=== PATIENT | female | born 1975 | race Caucasian/White ===

== ENCOUNTER → 2017-05-26 | Outpatient (CLI) | payer OTHER | LOC: FIMAGING 08:44 | PROVIDERS: ATTEND Internal Medicine Pulmonary Disease | DX: K21.9 Gastro-esophageal reflux disease without esophagitis (principal); R06.02 Shortness of breath; J31.0 Chronic rhinitis; Z88.9 Allergy status to unspecified drugs, medicaments and biological substances ==

== ENCOUNTER 2017-07-31 09:08 | Emergency (ER) | payer OTHER ==
[2017-07-31 09:36] VITALS: RESP 16
--- NOTE | 2017-07-31 10:00 | EDPHY ---
H & P Stated Complaint: rt nare bleeding since 729 this am,hilario Time Seen by Provider: 07/31/17 09:21 - Personal History LMP (Females 10-55): 15-21 Days Ago - Medical/Surgical History Hx Asthma: Yes Hx Chronic Respiratory Disease: No Hx Diabetes: No Hx Cardiac Disease: No Hx Renal Disease: No Hx Cirrhosis: No Hx Alcoholism: No Hx HIV/AIDS: No Hx Splenectomy or Spleen Trauma: No Other PMH: Hypothyroid,allergies-severe,MTHFR. ortho surgeries. Csection - Social History Smoking Status: Never smoked Constitutional: Initial Vital Signs Heart Rate 69 07/31/17 09:22 Respiratory Rate 16 07/31/17 09:22 Blood Pressure 144/103 H 07/31/17 09:22 O2 Sat (%) 97 07/31/17 09:22 O2 Delivery Mode Room Air Allergies/Adverse Reactions: adhesive Allergy (Intermediate, Verified 07/31/17 09:19) Rash codeine [Codeine] Allergy (Intermediate, Verified 07/31/17 09:19) hydrocodone bitartrate [From Vicodin] Allergy (Intermediate, Verified 07/31/17 09:19) oxycodone HCl [From Percocet] Allergy (Intermediate, Verified 07/31/17 09:19) Penicillins Allergy (Verified 07/31/17 09:20) Home Medications: Medication Instructions Recorded [facility] Rx Tablet 04/23/16 Medical Decision Making ED Course/Re-evaluation: CHIEF COMPLAINT: Nosebleed HISTORY OF PRESENT ILLNESS: 42-year-old female with a long history of nose bleeds always out of the right nares. She has had 1 or to emergency department cauterization procedures in addition to want her to ENT physician cautery procedures. She had a bit of an upper respiratory infection over the last week. She blew her nose this morning and developed a nosebleed out her right naris. She has a nasal clamp and she was told to use Afrin which she did both of those things. She currently does not have active bleeding with the clamp on. She does not have any bleeding going backwards down her throat. She does not have any bleeding coming out the front. She denies any recent nasal injuries. The weather has become severely cold recently in the heat has been on significantly in her house also. REVIEW OF SYSTEMS: A 10 point review of systems was performed and is negative with the exception of the elements mentioned in the history of present illness. PHYSICAL EXAM: HR, BP, O2 Sat, RR. Temp noted General Appearance: Alert, well hydrated, appropriate, and non-toxic appearing. Head: Atraumatic without scalp tenderness or obvious injury Eyes: Pupils equal, round, reactive to light and accommodation, EOMI, no trauma , no injection. Nose: Atraumatic, no rhinorrhea, clear. Throat: There is no erythema or exudates, no lesions, normal tonsils, mucus membranes moist. Neck: Supple, 2+ carotid upstroke, nontender, no lymphadenopathy. Respiratory: No retractions, no distress, no wheezes, and no accessory muscle use. Lungs are clear to auscultation bilaterally. Musculoskeletal: Normal active ROM of all extremities, atraumatic. Neurological: Alert, appropriate, and interactive. The patient has normal DTRs and non-focal cranial nerves, motor, sensory, and cerebellar exam. Skin: No rashes, good turgor, no nodules on palpation. Past medical history: Significant environmental allergies, deviated septum Past surgical history: None but potentially having surgery for these recurrent nosebleeds Family history: Noncontributory Social history: , does not abuse tobacco drugs or alcohol, DIAGNOSTICS/PROCEDURES/CRITICAL CARE TIME: Procedure: Epistaxis control. Indication: nosebleed not controlled by direct pressure. Risks, benefits, alternatives discussed with patient and consent obtained. The right nares was anesthetized with [lidocaine with epinephrine as there is no TXA or Alfaro solution available]. The [anterior] epistaxis was identified. The patient was treated with [vasoconstriction]. [Following the procedure the patient was re-examined and the bleeding was well controlled.] [The patient tolerated the procedure well.] The procedure was performed by myself. The patient has no active bleeding and utilization of packing is not warranted at this time. DIFFERENTIAL DIAGNOSIS: Includes but is not limited to: Anterior epistaxis, posterior epistaxis, bilateral epistaxis, traumatic epistaxis, blood dyscrasias MEDICAL DECISION MAKING: Upon removal of the nasal clamp there is a slight amount of bleeding still of the right nares and the anterior venous plexus. After gently packing the nose with lidocaine and epinephrine on gauze I took the packing out after 15 min and then re-evaluated the patient. There is no evidence of any active bleeding. Patient has been given specific instructions to return if bleeding continues. She will follow up with her ENT who she has an established relationship with and is planning to have surgery for this problem. There is no evidence of posterior or active bleeding. I have talked to the patient about using Vaseline in her nares and a humidifier. Departure - Departure Disposition: Home, Routine, Self-Care Clinical Impression: Acute anterior epistaxis Condition: Good Instructions: Nosebleed (ED)
[2017-07-31 10:28] VITALS: BP 107/56; PULSE 64; O2SAT 96
== END 2017-07-31 10:27 | disposition home or self-care (01) ==
LOC: CED 09:08
DX: R04.0 Epistaxis (principal); J45.909 Unspecified asthma, uncomplicated